=== PATIENT | male | born 1950 | race Caucasian/White ===

== ENCOUNTER → 2016-04-04 | Outpatient (CLI) | payer MEDICARE ==
[~2016-04-04] MED LIST: AMLO10TA2 PO; AMLO5TAB2 PO; CALC.25 PO; CARV3.12 PO; CARV3.125 PO; CEFA1SOL IV; COLA100C3 PO; CYPR4TAB PO; FLUT50SP EACH NARE; FURO1TAB62 PO; HYDR25TA35 PO; IPRASOL NEB; ISOS30TA3 PO; LOVA40TA PO; MIRA33504 PO; NEPHTAB3 PO; NITR1SUB3 SL; NORC5TAB PO; OXYC1TAB63 PO; PANT40TA3 PO; PARO30TA2 PO; RENATAB5 PO; SEVEL800 PO; SPIRCAP INH; TAMS5CAP PO; TEMA15CA PO
[2016-04-04 11:56] LABS: HEMATOCRIT 23.7 % (39.0-51.0); MEAN CELL VOLUME 86.6 FL (80.0-100.0); MEAN CORPUSCULAR HEMOGLOBIN 27.7 PG (27.0-34.0); PLATELET COUNT 618 TH/MM3 (150-450); RED BLOOD COUNT 2.73 MIL/MM3 (4.50-5.90); RED CELL DISTRIBUTION WIDTH 19.5 % (11.6-17.2); REVIEW FLAG FINAL; WHITE BLOOD COUNT 12.5 TH/MM3 (4.0-11.0)
[2016-04-04 12:19] LABS: BICARBONATE 21.6 MEQ/L (21.0-32.0); POTASSIUM 4.4 MEQ/L (3.5-5.1)
--- NOTE | 2016-04-04 13:26 | RADRPT ---
EXAM DATE/TIME: 04/04/2016 11:32 [place] COMPARISON: CHEST SINGLE AP, March 05, 2016, 12:40. INDICATIONS : Evaluate for pnemuonia,pneumothorax. Pre op av fistula. MEDICAL HISTORY : Hypercholesterolemia. Cardiovascular disease SURGICAL HISTORY : dialysis catheter ENCOUNTER: Initial ACUITY: 1 day PAIN SCORE: 0/10 LOCATION: Bilateral chest FINDINGS: The lungs are clear. The heart is normal in size. The dialysis catheter is in good position. The bony structures are intact. CONCLUSION: The PermCath is in excellent position. The lungs are clear. The bony structures are grossly intact. Ronny Craty MD on April 04, 2016 at 13:23 Board Certified Radiologist. This report was verified electronically.
--- NOTE | 2016-04-04 14:40 | EKG ---
Date Performed: 04/04/2016 Time Performed: 11:03:22 PTAGE: 66 years EKG: Sinus rhythm ARM LEADS REVERSED ATYPICAL ECG Since PREVIOUS TRACING , no significant change noted DOCTOR: Ailyn Gamble Interpretating Date/Time 04/04/2016 14:35:50
== END ==
LOC: CPRE 10:30
PROVIDERS: ATTEND Surgery
DX: Z01.810 Encounter for preprocedural cardiovascular examination (principal); Z01.812 Encounter for preprocedural laboratory examination; N18.6 End stage renal disease
CPT/HCPCS: 36415; 71020; 80048; 85027; 93005

== ENCOUNTER 2016-04-10 05:30 | Observation (INO) | payer MEDICARE ==
[2016-04-10] VITALS (11 sets, daily range): BP systolic 90–145; BP diastolic 49–73; PULSE 72–98; RESP 18–22; TEMP 97.8–99.6; O2SAT 98–100
[~2016-04-10] VITALS: Ht 165.1 cm; Wt 60.0 kg
[~2016-04-10 05:30] MED LIST changes: -AMLO10TA2 PO; -CARV3.12 PO; -CARV3.125 PO; -CEFA1SOL IV; -COLA100C3 PO; -FURO1TAB62 PO; -MIRA33504 PO; -NEPHTAB3 PO; -NORC5TAB PO; -OXYC1TAB63 PO; -RENATAB5 PO; -SPIRCAP INH; -TAMS5CAP PO
[2016-04-10] MEDS ORDERED: SODIUM CHLORID 0.9% 500 ML IV SCH (06:15)
[2016-04-10] MEDS ORDERED: METOPROLOL TARTRATE 25 MG TAB PO PRN (06:15)
[2016-04-10] MEDS ORDERED: INSULIN HUMAN REGULAR 1,000 UNITS/10 ML VIAL SQ PRN (06:15)
[2016-04-10] MEDS ORDERED: LACTATED RINGER'S 1000 ML IV SCH (06:15)
[2016-04-10] MEDS ORDERED: THROMBIN (TOPICAL) 5,000 UNIT VIAL ONE (07:15)
[2016-04-10] MEDS ORDERED: FAMOTIDINE 20 MG/2 ML VIAL ONE (07:15)
[2016-04-10] MEDS ORDERED: VANCOMYCIN HCL 1000 MG VIAL ONE (07:15)
[2016-04-10] MEDS ORDERED: MIDAZOLAM HCL 2 MG/2 ML VIAL ONE (07:15)
[2016-04-10] MEDS ORDERED: HEPARIN SODIUM - IV 10,000 UNITS/10 ML VIAL ONE ×2 (07:16→07:18)
[2016-04-10] MEDS ORDERED: BUPIVACAINE/EPINEPHRINE 0.25% PF 30 ML VIAL ONE ×2 (07:16→07:17)
[2016-04-10] MEDS ORDERED: PROTAMINE SULFATE 50 MG/5 ML VIAL ONE (07:16)
[2016-04-10] MEDS ORDERED: GELFOAM SIZE 100 ONE (07:16)
[2016-04-10] MEDS ORDERED: fentaNYL CITRATE 250 MCG/5 ML AMP ONE (10:32)
[2016-04-10] MEDS ORDERED: NITROGLYCERIN 0.4 MG SL 25 TABS/BTL SL ONE ×2 (10:54→11:45)
[2016-04-10] MEDS ORDERED: LORazepam 2 MG/ML VIAL IVP PRN (11:15)
[2016-04-10] MEDS ORDERED: ATROPINE SULFATE 1 MG/ML VIAL IV PUSH PRN (11:15)
[2016-04-10] MEDS ORDERED: POTASSIUM CHLORIDE 20 MEQ CONTROLLED RELEASE TAB PO PRN (11:15)
[2016-04-10] MEDS ORDERED: METOCLOPRAMIDE HCL 10 MG/2 ML VIAL IVS PRN (11:15)
[2016-04-10] MEDS ORDERED: HOLD GLUCOPHAGE, GLUCOPHAGE XR, AND AVANDAMET XX PRN (11:15)
[2016-04-10] MEDS ORDERED: DO NOT ADM ANY ANTICOAGULANT DRUGS XX PRN (11:15)
[2016-04-10] MEDS ORDERED: SODIUM CHLOR 0.9% 250 ML IV PRN (11:15)
[2016-04-10] MEDS ORDERED: cloNIDine HCL 0.1 MG TAB PO PRN (11:15)
[2016-04-10] MEDS ORDERED: METOPROLOL TARTRATE 5 MG/5 ML VIAL ONE (11:15)
[2016-04-10] MEDS ORDERED: oxyCODONE/ACETAMINOPHEN 5 MG/325 MG TAB PO PRN ×2 (11:15)
[2016-04-10] MEDS ORDERED: LIDOCAINE HCL 1% 50 ML VIAL INFIL PRN (11:15)
[2016-04-10] MEDS ORDERED: ONDANSETRON HCL 4 MG/2 ML VIAL IV PRN (11:15)
[2016-04-10] MEDS ORDERED: SODIUM NITROPRUSSIDE 50 MG/250 ML D5W IV SCH ×2 (11:15)
[2016-04-10] MEDS ORDERED: ENALAPRILAT 1.25 MG/ML VIAL IV PRN (11:15)
[2016-04-10] MEDS ORDERED: LABETALOL HCL 100 MG/20 ML VIAL IVP PRN (11:15)
[2016-04-10] MEDS ORDERED: METOPROLOL TARTRATE 5 MG/5 ML VIAL IV PUSH ONE (12:00)
[2016-04-10] MEDS ORDERED: PROPOFOL 200 MG/20 ML AMP IV ONE (12:00)
[2016-04-10] MEDS ORDERED: PHENYLEPH/NS 1000 MCG/10 ML SYR IV ONE (12:00)
[2016-04-10] MEDS ORDERED: SODIUM CHLOR 0.9% 250 ML INJ 250 ML IV ONE (12:00)
[2016-04-10] MEDS ORDERED: ONDANSETRON HCL 4 MG/2 ML VIAL IV PUSH ONE (12:00)
[2016-04-10] MEDS ORDERED: HEPARIN-D5W INJ 250 ML ONE (12:50)
[2016-04-10] MEDS ORDERED: HEPARIN-D5W INJ 250 ML IV ONE (13:15)
--- NOTE | 2016-04-10 14:38 | PD.VS.PN ---
Subjective POD #: 0 (pt had surgery today am ) Procedure(s): right upper arm AV graft Subjective/Hospital Course Pt resting comfortably on st in PACU alert in nad. Pt denied any chest pain, states he had some discomfort that resolved post nitro administration. Objective Vitals/I&O Date Time Temp Pulse Resp B/P Pulse Ox O2 Delivery O2 Flow Rate FiO2 04/10/16 13:15 85 16 138/65 98 Nasal Cannula 04/10/16 13:00 84 16 134/63 98 Nasal Cannula 04/10/16 12:45 84 16 139/67 98 Nasal Cannula 04/10/16 12:30 82 16 133/64 98 Nasal Cannula 04/10/16 12:15 82 16 114/51 98 Nasal Cannula 04/10/16 12:00 82 16 125/57 98 Nasal Cannula 3 04/10/16 11:45 81 16 118/58 98 Nasal Cannula 3 04/10/16 11:30 79 16 115/54 98 Nasal Cannula 3 04/10/16 11:15 97 16 135/62 98 Nasal Cannula 3 04/10/16 11:00 97 16 135/62 98 Nasal Cannula 3 04/10/16 10:45 96 16 146/77 98 Nasal Cannula 3 04/10/16 10:30 91 20 144/70 100 Nasal Cannula 3 04/10/16 10:20 99.0 107 20 138/72 100 Nasal Cannula 3 04/10/16 06:34 98.1 94 20 125/66 99 04/10/16 04/10/16 04/10/16 07:00 15:00 23:00 Intake Total 450 ml Output Total 25 ml Balance 425 ml Exam: GENERAL: pt alert resting comfortably on st SKIN: Warm and dry.. NECK: Supple, trachea midline. No JVD or lymphadenopathy. CARDIOVASCULAR: Regular rate and rhythm without murmurs, gallops, or rubs. RESPIRATORY: Breath sounds equal bilaterally. No accessory muscle use. MUSCULOSKELETAL: No cyanosis, or edema. bilat UE strong with equal weight engineer strength Bilat radial pulses strong and palpable Pulses: bilat radial pulses strong and palpable Incisions: dressing intact with no drainage Laboratory Laboratory Tests Test 04/10/16 11:59 Total Creatine Kinase 15 Troponin I 0.05 Assessment and Plan Assessment: (1) ESRD on hemodialysis Status: Chronic (2) Fistula Status: Acute (3) Chest pain Status: Resolved Plan pt to be admitted for CP Will continue to follow pt for AV graft Problem Qualifiers (1) Chest pain: Qualified Code: R07.89 - Other chest pain Vy Hernandez Apr 10, 2016 14:38
[2016-04-10] MEDS ORDERED: CARVEDILOL 3.125 MG TAB PO ONE (16:00)
[2016-04-10] MEDS ORDERED: NITROGLYCERIN 2% OINT 1 GM PACKET TOPICAL ONE (16:00)
[2016-04-10] MEDS ORDERED: *morphine SULFATE 8 MG/ML PERIprocedure ONLY ONE (17:12)
--- NOTE | 2016-04-10 17:18 | MB ---
cc: BRANDI DEVINE M.D. DATE OF CONSULTATION 04/10/16 REASON FOR CONSULTATION Lizandro is a very pleasant 66 year old gentleman with history of coronary artery disease status post PCI of the obtuse marginal vessel several months ago, cardiomyopathy, end-stage renal failure on dialysis. I saw him in the office last week and recommended a left heart catheterization as he had been having Cardiovascular Society Class IV angina. The patient did not do this and underwent AV fistula and placement today. Postoperatively he developed chest pain, had EKG changes as well. Currently he is resting in the post anesthesia care unit. I had to actually wake him up. He is in no acute distress. Denies any current chest pain, shortness of breath, fevers, chills, cough, GI or bleeding, paroxysmal nocturnal dyspnea, orthopnea, syncope or dizziness. PAST MEDICAL HISTORY per history of present illness. ALLERGIES MULTIDRUG RESISTANT ORGANISM SOCIAL HISTORY He smokes, drinks alcohol occasionally. MEDICATIONS 1. Aspirin 81 mg daily 2. IV Heparin. PHYSICAL EXAMINATION VITAL SIGNS: Blood pressure 138/65, pulse 85, respiratory rate 16. GENERAL: He is alert and oriented times three in no acute distress NECK: Supple. No JVD, no bruit CARDIOVASCULAR: S1, S2. No murmurs, rubs or gallops. LUNGS: Clear to auscultation bilaterally ABDOMEN Soft, nontender, nondistended with positive bowel sounds. EXTREMITIES: No lower extremity edema. LABORATORY DATA Troponin 105. No other labs are done. IMAGING STUDIES Chest x-ray not done. CARDIOLOGY STUDIES EKG shows normal sinus rhythm at 97 beats per minute. Anterior ischemia with 1-[address]-segment depression at V4, V5, ____ PACs. DIAGNOSES 1. Coronary artery disease 2. Cardiomyopathy 3. End-stage renal failure 4. Unstable angina 5. [place] Cardiovascular Society class IV angina 6. Postop angina 7. Tobacco use. DISCUSSION I Discussed the case with Dr. Jared Mcnamara, the patient's vascular surgeon. The patient is being treated with aspirin and heparin drip at low-dose, is currently pain free. He has a known high-grade lesion in the lateral branch of the obtuse marginal vessel which was not able to be revascularized on previous attempt. I suspect this is his culprit lesion given the anterolateral ischemia on the EKG. At this point in time, we will do serial troponins, add beta audrey Coreg 3.125 b.i.d., also check postop CBC, BMP. I advised the anesthesiologist, the post anesthesia care unit nurse and Dr. Mcnamara to place the patient on the hospitalist service and admit the patient. MD BARNEY George/ /3:34 PM /4:56 PM
[2016-04-10 17:19] LABS: MEAN CELL VOLUME 86.3 FL (80.0-100.0); MEAN CORPUSCULAR HEMOGLOBIN 27.1 PG (27.0-34.0); MEAN CORPUSCULAR HGB CONC 31.4 % (32.0-36.0); PLATELET COUNT 548 TH/MM3 (150-450); RED BLOOD COUNT 2.36 MIL/MM3 (4.50-5.90); RED CELL DISTRIBUTION WIDTH 19.7 % (11.6-17.2); WHITE BLOOD COUNT 12.3 TH/MM3 (4.0-11.0)
[2016-04-10 17:30] LABS: HEMATOCRIT 20.4 % (39.0-51.0); REVIEW FLAG FINAL
[2016-04-10 17:32] LABS: APTT (PATIENT) 30.6 SEC (24.3-30.1); PROTHROMBIN TIME - PATIENT 11.6 SEC (9.8-11.6)
--- NOTE | 2016-04-10 17:43 | HHI.HP ---
[facility] Yulia Beaulieu DO Admission Diagnosis Diagnoses: Chief Complaint: Chest pain Travel History International Travel<30 Days: No Contact w/Intl Traveler <30 Da: No Traveled to Known Affected Are: No History of Present Illness This 66 year old male patient with past medical history which includes a end- stage renal disease secondary to IgA nephropathy, hypertension, COPD, atrial fibrillation, CAD status post coronary angioplasty, hyperlipidemia, esophageal ulceration and history of MRSA. Patient underwent a right brachial to brachial AV fistula today and in the post anesthesia recovery unit had to have chest pain. Per patient the chest pain was located primarily initiated on the right side of his chest with radiation down his left arm and into his back. Chest pain is associated with shortness of breath. Patient also noted to have EKG changes. EKG reviewed by myself as well as Dr. Lai and revealed normal sinus rhythm at 97 beats per minute. Anterior ischemia with 1-[address]- segment depression at V4, V5. Patient was given sublingual nitroglycerin and the chest pain resolved after proximally 15 minutes. Patient is currently on a heparin drip per cardiology. Patient resting currently at this point denies chest pain and appears to be in no acute distress. In further questioning appears the patient has had this type of chest pain both at rest and with activity for the past few weeks at home and it was in fact advised by his terrazzo installer Dr. Ramos to have a left heart catheterization. Patient did not do this and proceeded with the AV fistula graft. 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, hypertension, COPD, atrial fibrillation, CAD status post coronary angioplasty, hyperlipidemia, esophageal ulceration and history of MRSA Past Surgical History Coronary angioplasty patient reports he has no stents, left foot surgery 1978, dialysis catheter placed right side, Bilateral cataract surgery Reported Medications Hydralazine (Hydralazine HCl) 25 Mg Tab 25 Mg PO Q8HR 30 Days Pantoprazole (Pantoprazole Sodium) 40 Mg Tab 40 Mg PO DAILY Duoneb (Ipratropium-Albuterol Neb) 0.5-2.5 Mg/3 Ml Neb 1 Ampule NEB QID NEB Nitroglycerin SL (Nitroglycerin) 0.4 Mg Subl 0.4 Mg SL DIRECTED PRN ONE TABLET UNDER THE TONGUE NEEDED FOR CHEST PAIN, MAY REPEAT EVERY FIVE MINUTES FOR A TOTAL OF 3 DOSES OR CALL 911 IF NO RELIEF Isosorbide Mononitrate ER (Isosorbide Mononitrate) 30 Mg Neris 30 Mg PO DAILY Amlodipine (Amlodipine Besylate) 5 Mg Tab 5 Mg PO DAILY Paroxetine (Paroxetine HCl) 30 Mg Tab 30 Mg PO DAILY Fluticasone Nasal [place] 50 Mcg/Act Naspr 50 Mcg EACH NARE BID 50 mcg/spray Lovastatin 40 Mg Tab 40 Mg PO HS Renvela (Sevelamer Carbonate) 800 Mg Tab 800 Mg PO TID Allergies: Coded Allergies: *MDRO Multi-Drug Resistant Organism (Verified Adverse Reaction, Unknown, ) MRSA (blood) -01/17/16, 01/21/16 Active Ordered Medications Current Medications Medications (Trade) Dose Ordered Sig/Tamara Route Start Time Stop Time Status Last Admin Lactated Ringer's 1,000 ml @ 30 mls/hr Q24H IV 04/10/16 06:15 04/10/16 06:25 (NS 500 ml Inj) 500 ml @ 30 mls/hr [id number] IV 04/10/16 06:15 04/11/16 06:14 Atropine Sulfate 0.5 mg 0.5 mg UNSCH PRN IV PUSH 04/10/16 11:15 (NS 250 ml Inj) 250 ml @ 0 mls/hr BOLUS PRN IV 04/10/16 11:15 (Reglan Inj) 10 mg Q4H PRN IVS 04/10/16 11:15 (Zofran Inj) 4 mg Q6H PRN IV 04/10/16 11:15 Aspirin 81 mg 81 mg DAILY PO 04/11/16 09:00 (Nipride Inj/D5W Inj) 252 ml @ 0 mls/hr TITRATE IV 04/10/16 11:15 (Catapres) 0.1 mg Q30M PRN PO 04/10/16 11:15 Miscellaneous Information HOLD GLUCOPHAGE, GLUCOPH... UNSCH PRN XX 04/10/16 11:15 04/12/16 11:14 (Percocet 5-325 Mg) 1 tab Q4H PRN PO 04/10/16 11:15 (Percocet 5-325 Mg) 2 tab Q4H PRN PO 04/10/16 11:15 Miscellaneous Information ALL NURSING DEPARTME... UNSCH PRN XX 04/10/16 11:15 04/11/16 11:14 (Heparin-D5W Inj) 250 ml @ 5 mls/hr ONCE ONCE IV 04/10/16 13:15 04/12/16 15:14 04/10/16 13:34 (Coreg) 3.125 mg Q12HR PO 04/10/16 21:00 (Nitroglycerin 2% Oint) 1 inch Q6HR TOPICAL 04/11/16 00:00 Family History Mother denies colon cancer, father at age 93 secondary to "old age" Social History Patient smoked one spelled once proximal thirds per day from age 19 and quit July 2015 EtOH use 1 to 2 glasses of wine per night Physical Exam Vital Signs Vital Signs Date Time Temp Pulse Resp B/P Pulse Ox O2 Delivery O2 Flow Rate FiO2 04/10/16 13:30 87 16 143/68 98 Nasal Cannula 2 04/10/16 13:15 85 16 138/65 98 Nasal Cannula 04/10/16 13:00 84 16 134/63 98 Nasal Cannula 04/10/16 12:45 84 16 139/67 98 Nasal Cannula 04/10/16 12:30 82 16 133/64 98 Nasal Cannula 04/10/16 12:15 82 16 114/51 98 Nasal Cannula 04/10/16 12:00 82 16 125/57 98 Nasal Cannula 3 04/10/16 11:45 81 16 118/58 98 Nasal Cannula 3 04/10/16 11:30 79 16 115/54 98 Nasal Cannula 3 04/10/16 11:15 97 16 135/62 98 Nasal Cannula 3 04/10/16 11:00 97 16 135/62 98 Nasal Cannula 3 04/10/16 10:45 96 16 146/77 98 Nasal Cannula 3 04/10/16 10:30 91 20 144/70 100 Nasal Cannula 3 04/10/16 10:20 99.0 107 20 138/72 100 Nasal Cannula 3 04/10/16 06:34 98.1 94 20 125/66 99 Physical Exam GENERAL: This is a well-nourished, well-developed patient, in no apparent distress. SKIN: No rashes, ecchymoses or lesions. Cool and dry. Right upper extremity post surgical dressing dry and intact HEAD: Atraumatic. Normocephalic. No temporal or scalp tenderness. EYES: Extraocular motions intact. No scleral icterus. No injection or drainage. ENT: Nose without bleeding, purulent drainage or septal hematoma. Throat without erythema, tonsillar hypertrophy or exudate. Uvula midline. Airway patent. NECK: Trachea midline. No JVD or lymphadenopathy. Supple, nontender, no meningeal signs. CARDIOVASCULAR: Regular rate and rhythm without murmurs, gallops, or rubs. RESPIRATORY: Clear to auscultation. Breath sounds equal bilaterally. No wheezes , rales, or rhonchi. GASTROINTESTINAL: Abdomen soft, non-tender, nondistended. No guarding. MUSCULOSKELETAL: Extremities without clubbing, cyanosis, or edema. No joint tenderness, effusion, or edema noted. No calf tenderness. Negative Homans sign bilaterally. NEUROLOGICAL: Awake and alert. Motor and sensory grossly within normal limits. 4 out of 5 muscle strength in all muscle groups. Normal speech. 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 Patient underwent a right brachial to brachial AV fistula today and in the post anesthesia recovery unit had to have chest pain. EKG reviewed by myself as well as Dr. Lai and revealed normal sinus rhythm at 97 beats per minute. Anterior ischemia with 1-[address]- segment depression at V4, V5. Chest pain Continue heparin drip per cardiology Carvedilol 3.125 every 12 hours nitroglycerin 1 inch topically every 6 hours- patient takes Imdur 30 mg at home will hold off at this point in defer to cardiology as cardiology has started nitroglycerin 2% ointment 1 inch every 6 hours Serial troponin Lipid profile Cardiology also following, appreciate input End-stage renal disease secondary to IgA nephropathy-status post right brachial to brachial AV fistula graft on 04/10/2016 Hypertension continue patient's Norvasc and hydralazine Hyperlipidemia continue patient's home statin check lipid profile COPD continue duo nebs 4 times a day and as needed SCDs for DVT prophylaxis patient is also on heparin drip Discussed plan of care with patient and RN Written by Melina Manuel, acting as scribe for Dr. Lai on 04/10/16 at 17:42. Postop anemia Received call from RN with critical hemoglobin of 6.4 hematocrit 20.4. Preop labs reveal hemoglobin of 7.6 and hematocrit of 23.7 We'll transfuse 2 units packed red blood cells and recheck H&H every 6 hours 4 Also will check occult stool Dr. Lai notified Attending Statement The documentation accurately reflects the work performed [id number] by me on at 17:42. Melina Manuel Apr 10, 2016 17:43 Casey Sun MD Apr 27, 2016 11:08
[2016-04-10] MEDS ORDERED: SODIUM CHLORIDE 0.9% FLUSH 5 ML FLUSH FLUSH PRN (17:45)
[2016-04-10] MEDS ORDERED: NALOXONE HCL 0.4 MG/ML AMP IV PRN (17:45)
[2016-04-10] MEDS ORDERED: ACETAMINOPHEN 325 MG TAB PO PRN (17:45)
[2016-04-10] MEDS ORDERED: ONDANSETRON HCL 4 MG/2 ML VIAL IVP PRN (17:45)
[2016-04-10] MEDS: SEVELAMER CARBONATE 800 MG TAB PO SCH (18:00)
[2016-04-10 18:43] LABS: HEMATOCRIT 18.4 % (39.0-51.0)
[2016-04-10] MEDS: SODIUM CHLOR 0.9% 1000 ML INJ 1,000 ML IV SCH (19:00)
[2016-04-10] MEDS ORDERED: PILL SPLITTER OTHER PRN (19:00)
[2016-04-10] MEDS ORDERED: HEPARIN-D5W INJ 250 ML IV SCH (19:09)
--- NOTE | 2016-04-10 19:34 | EKG ---
Date Performed: 04/10/2016 Time Performed: 11:07:47 PTAGE: 66 years EKG: Sinus rhythm WITH OCCASIONAL SUPRAVENTRICULAR PREMATURE COMPLEXES LEFT VENTRICULAR HYPERTROPHY AND ST-T CHANGE Co mpared to prior tracing no significant change ABNORMAL ECG PREVIOUS TRACING : 04/04/2016 11.03 DOCTOR: Rhys Allan Interpretating Date/Time 04/10/2016 19:33:06
[2016-04-10] MEDS: hydrALAZINE HCL 25 MG TAB PO SCH (20:31)
[2016-04-10] MEDS: CARVEDILOL 3.125 MG TAB PO SCH (20:31)
[2016-04-10] MEDS: SODIUM CHLORIDE 0.9% FLUSH 5 ML FLUSH FLUSH SCH (20:32)
[2016-04-10] MEDS ORDERED: PRAVASTATIN SOD 40 MG TAB PO SCH (21:00)
[2016-04-10] MEDS: RESP: ALBUTEROL 2.5 MG/IPRATROPIUM 0.5 MG NEB (SCH) NEB (21:18)
[2016-04-11] VITALS (17 sets, daily range): BP systolic 95–137; BP diastolic 49–64; PULSE 73–91; RESP 18–20; TEMP 97.8–99.4; O2SAT 97–100
[2016-04-11 05:18] LABS: HEMATOCRIT 31.1 % (39.0-51.0); MEAN CELL VOLUME 84.7 FL (80.0-100.0); MEAN CORPUSCULAR HEMOGLOBIN 27.7 PG (27.0-34.0); MEAN CORPUSCULAR HGB CONC 32.8 % (32.0-36.0); PLATELET COUNT 519 TH/MM3 (150-450); RED BLOOD COUNT 3.67 MIL/MM3 (4.50-5.90); RED CELL DISTRIBUTION WIDTH 17.9 % (11.6-17.2); REVIEW FLAG FINAL; WHITE BLOOD COUNT 9.6 TH/MM3 (4.0-11.0)
[2016-04-11 05:34] LABS: APTT (PATIENT) 24.8 SEC (24.3-30.1)
[2016-04-11 05:49] LABS: BICARBONATE 22.8 MEQ/L (21.0-32.0); POTASSIUM 4.2 MEQ/L (3.5-5.1)
[2016-04-11] MEDS: hydrALAZINE HCL 25 MG TAB PO SCH ×2 (05:49→14:00)
[2016-04-11] MEDS: NITROGLYCERIN 2% OINT 1 GM PACKET TOPICAL SCH ×4 (05:49→18:00)
[2016-04-11 05:53] LABS: HDL CHOLESTEROL 30.3 MG/DL (40.0-60.0)
[2016-04-11] MEDS ORDERED: HEPARIN-D5W INJ 250 ML IV SCH (06:00)
[2016-04-11] MEDS: RESP: ALBUTEROL 2.5 MG/IPRATROPIUM 0.5 MG NEB (SCH) NEB ×3 (07:41→16:00)
[2016-04-11] MEDS: SEVELAMER CARBONATE 800 MG TAB PO SCH ×3 (08:39→18:11)
[2016-04-11] MEDS: CARVEDILOL 3.125 MG TAB PO SCH (08:40)
[2016-04-11] MEDS: SODIUM CHLORIDE 0.9% FLUSH 5 ML FLUSH FLUSH SCH (08:42)
[2016-04-11] MEDS ORDERED: PARoxetine HCL 20 MG TAB PO SCH (09:00)
[2016-04-11] MEDS ORDERED: PANTOPRAZOLE SOD 40 MG DELAYED RELEASE TAB PO SCH (09:00)
[2016-04-11] MEDS ORDERED: ASPIRIN EC 81 MG TABEC PO SCH (09:00)
[2016-04-11] MEDS ORDERED: amLODIPine BESYLATE 5 MG TAB PO SCH (09:00)
--- NOTE | 2016-04-11 09:56 | PD.VS.PN ---
Subjective Subjective/Hospital Course Patient without chest pain overnight. without arm pain. Objective Vitals/I&O Date Time Temp Pulse Resp B/P Pulse Ox O2 Delivery O2 Flow Rate FiO2 04/11/16 07:43 98 Nasal Cannula 3.00 04/11/16 06:00 83 04/11/16 05:00 80 04/11/16 04:00 84 04/11/16 04:00 97.8 91 18 136/63 99 04/11/16 03:00 82 04/11/16 02:00 84 04/11/16 01:00 82 04/11/16 00:00 77 04/11/16 00:00 97.8 80 18 95/49 100 04/10/16 23:45 97.8 76 18 96/49 100 04/10/16 23:00 76 04/10/16 22:00 72 04/10/16 21:19 98 Nasal Cannula 3.00 04/10/16 21:00 80 04/10/16 20:00 89 04/10/16 20:00 99.6 89 18 90/52 100 04/10/16 19:45 99.3 79 18 139/60 100 04/10/16 19:30 99.3 89 18 90/52 100 04/10/16 19:00 92 04/10/16 18:29 98.8 98 22 145/73 98 04/10/16 18:06 99.2 98 18 149/62 96 Nasal Cannula 2 04/10/16 17:30 98 18 149/62 96 Nasal Cannula 2 04/10/16 16:30 99 18 140/60 96 Nasal Cannula 2 04/10/16 15:30 92 16 155/75 97 Nasal Cannula 2 04/10/16 14:30 100 16 149/72 98 Nasal Cannula 2 04/10/16 13:30 87 16 143/68 98 Nasal Cannula 2 04/10/16 13:15 85 16 138/65 98 Nasal Cannula 04/10/16 13:00 84 16 134/63 98 Nasal Cannula 04/10/16 12:45 84 16 139/67 98 Nasal Cannula 04/10/16 12:30 82 16 133/64 98 Nasal Cannula 04/10/16 12:15 82 16 114/51 98 Nasal Cannula 04/10/16 12:00 82 16 125/57 98 Nasal Cannula 3 04/10/16 11:45 81 16 118/58 98 Nasal Cannula 3 04/10/16 11:30 79 16 115/54 98 Nasal Cannula 3 04/10/16 11:15 97 16 135/62 98 Nasal Cannula 3 04/10/16 11:00 97 16 135/62 98 Nasal Cannula 3 04/10/16 10:45 96 16 146/77 98 Nasal Cannula 3 04/10/16 10:30 91 20 144/70 100 Nasal Cannula 3 04/10/16 10:20 99.0 107 20 138/72 100 Nasal Cannula 3 04/11/16 04/11/16 04/11/16 07:00 15:00 23:00 Intake Total 1280 ml Output Total 500 ml Balance 780 ml Physical Exam right arm with palpable thrill and no swelling ecchymosis or bleeding. Laboratory Laboratory Tests Test 04/10/16 04/10/16 04/10/16 04/10/16 11:59 17:07 18:14 18:19 Total Creatine Kinase 15 Troponin I 0.05 0.06 White Blood Count 12.3 Red Blood Count 2.36 Hemoglobin 6.4 5.8 Hematocrit 20.4 18.4 Mean Corpuscular Volume 86.3 Mean Corpuscular Hemoglobin 27.1 Mean Corpuscular Hemoglobin 31.4 Concent Red Cell Distribution Width 19.7 Platelet Count 548 Mean Platelet Volume 7.3 Prothrombin Time 11.6 Prothromb Time International 1.0 Ratio Activated Partial 30.6 Thromboplast Time Blood Type A NEGATIVE Antibody Screen NEGATIVE Crossmatch Leukocyte-Reduced Red Blood Cells Blood Bank Comment Test 04/11/16 04:47 White Blood Count 9.6 Red Blood Count 3.67 Hemoglobin 10.2 Hematocrit 31.1 Mean Corpuscular Volume 84.7 Mean Corpuscular Hemoglobin 27.7 Mean Corpuscular Hemoglobin 32.8 Concent Red Cell Distribution Width 17.9 Platelet Count 519 Mean Platelet Volume 7.0 Activated Partial 24.8 Thromboplast Time Sodium Level 134 Potassium Level 4.2 Chloride Level 100 Carbon Dioxide Level 22.8 Anion Gap 11 Blood Urea Nitrogen 34 Creatinine 3.62 Estimat Glomerular Filtration 17 Rate Random Glucose 85 Calcium Level 10.4 Troponin I 0.07 Triglycerides Level 97 Cholesterol Level 82 LDL Cholesterol 32 HDL Cholesterol 30.3 Cholesterol/HDL Ratio 2.70 Assessment and Plan Assessment: (1) ESRD on hemodialysis Status: Chronic (2) Fistula Status: Acute (3) Chest pain Status: Resolved Plan This is a 66 yr old male with hx of ESRD status post right brachiobrachial AVF. Had chest pain post op, known patient of Dr. Ramos, with hx of [place] and coronary stent in fall of 2015. Pain has resolved and discussed follow up with Dr. Ramos, would like to see patient before discharge. Cannot see patient until later today. Will consult nephrology so he can undergo HD as he will miss his afternoon session. Patient is not bleeding and had minimal blood loss in OR, less than 50 cc's. Hemoglobin rise to 10.2 from 5.8 or 6.4 most likely mean two original blood values were diluted or erroneous. No need for follow up for hemoglobin or bleeding as this is not a source of his low H/H.. Advance diet and discharge after see by Dr. Richard Mcnamara DO, FACS [facility] Problem Qualifiers (1) Chest pain: Qualified Code: R07.89 - Other chest pain Jared Mcnamara DO Apr 11, 2016 09:56
--- NOTE | 2016-04-11 10:07 | PD.VS.DC ---
Discharge Summary Admission Date: Apr 10, 2016 at 17:45 Discharge Date: Apr 11, 2016 Admission Diagnosis: (1) Angina at rest (2) ESRD (end stage renal disease) on dialysis (3) Anemia Discharge Diagnosis: (1) ESRD on hemodialysis Diagnosis: Principal Status: Chronic (2) Fistula Diagnosis: Secondary Status: Acute (3) Chest pain Diagnosis: Secondary Status: Resolved (4) Angina at rest Diagnosis: Secondary Status: Acute (5) Anemia Diagnosis: Secondary Status: Acute (6) ESRD (end stage renal disease) on dialysis Diagnosis: Principal Status: Chronic Brief History from admission 66 year old with hx of anemia and hx of CAD with previous coronary stent with known risk for haseeb-opeartive cardiac event discussed with patient and Dr. Ramos pre-operatively. Underwent right upper extremity AVF. Chest pain in PACU. Patient has had chest pain at rest before this admission when seen in the office. Admitted for observation after chest pain in PACU. Patient had resolution of his chest pain with nitroglycerin and has not had any chest pain since this event. Dr. Ramos will reassess him later today. Plan for discharge after seen by Dr. Ramos. Procedure(s): right upper arm AV graft Significant Findings Laboratory Tests Test 04/10/16 04/10/16 04/10/16 04/11/16 11:59 17:07 18:19 04:47 Total Creatine Kinase 15 U/L (39-308) White Blood Count 12.3 TH/MM3 (4.0-11.0) Red Blood Count 2.36 MIL/MM3 3.67 MIL/MM3 (4.50-5.90) (4.50-5.90) Hemoglobin 6.4 GM/DL 5.8 GM/DL 10.2 GM/DL (13.0-17.0) (13.0-17.0) (13.0-17.0) Hematocrit 20.4 % 18.4 % 31.1 % (39.0-51.0) (39.0-51.0) (39.0-51.0) Mean Corpuscular Hemoglobin 31.4 % Concent (32.0-36.0) Red Cell Distribution Width 19.7 % 17.9 % (11.6-17.2) (11.6-17.2) Platelet Count 548 TH/MM3 519 TH/MM3 (150-450) (150-450) Activated Partial 30.6 SEC Thromboplast Time (24.3-30.1) Troponin I 0.06 NG/ML 0.07 NG/ML (0.02-0.05) (0.02-0.05) Sodium Level 134 MEQ/L (136-145) Blood Urea Nitrogen 34 MG/DL (7-18) Creatinine 3.62 MG/DL (0.60-1.30) Estimat Glomerular Filtration 17 ML/MIN (>89) Rate Calcium Level 10.4 MG/DL (8.5-10.1) Cholesterol Level 82 MG/DL (120-200) HDL Cholesterol 30.3 MG/DL (40.0-60.0) Hospital Course: uncomplicated with resolution of chest pain and a functioning fistula. Discharge Condition: Good Discharge Disposition: Discharge Home Discharge Instructions: Follow up with Dr. Ramos on Follow up with Dr. Mcnamara on Sunday 04/16 Any questions or concerns: Call [facility] at [facility] [phone] Jared Mcnamara DO Apr 11, 2016 10:07
[2016-04-11] MEDS ORDERED: SODIUM CHLOR 0.9% 1000 ML INJ 1,000 ML IV PRN ×3 (11:24)
[2016-04-11] MEDS ORDERED: diphenhydrAMINE HCL 25 MG CAP PO PRN (11:30)
[2016-04-11] MEDS ORDERED: GENTAMICIN SULFATE (DIALYSIS USE ONLY) 20 MG/2 ML VIAL IV PRN (11:30)
[2016-04-11] MEDS ORDERED: ALBUMIN HUMAN 25% 25 GM/100 ML BAGP IV PRN (11:30)
[2016-04-11] MEDS ORDERED: ONDANSETRON HCL 4 MG/2 ML VIAL IV PRN (11:30)
[2016-04-11] MEDS ORDERED: SODIUM CHLORIDE 0.9% FLUSH 5 ML FLUSH IVF PRN (11:30)
[2016-04-11] MEDS ORDERED: HEPARIN SODIUM - IV 10,000 UNITS/10 ML VIAL PRN (11:30)
[2016-04-11] MEDS ORDERED: ACETAMINOPHEN 325 MG TAB PO PRN (11:30)
[2016-04-11] MEDS ORDERED: cloNIDine HCL 0.1 MG TAB PO PRN (11:30)
[2016-04-11] MEDS ORDERED: MANNITOL 12.5 GM/50 ML VIAL IV PRN (11:30)
[2016-04-11] MEDS ORDERED: GELATIN 12 MM/7 MM FOAM TOP PRN (11:30)
[2016-04-11] MEDS ORDERED: NITROGLYCERIN 0.4 MG SL 25 TABS/BTL SL PRN (11:30)
[2016-04-11] MEDS ORDERED: HEPARIN SODIUM - IV 10,000 UNITS/10 ML VIAL IVF PRN (11:30)
[2016-04-11] MEDS ORDERED: EPOETIN ALFA 4,000 UNITS/ML VIAL IV PRN (11:30)
--- NOTE | 2016-04-11 11:50 | PD.CONS ---
HPI Service Nephrology Consult Requested By Dr. Gentile Reason for Consult ESRD Primary Care Physician Yulia Beaulieu, DO History of Present Illness Patient is a 66-year-old male with history of end-stage renal disease, IgA nephropathy, hypertension, admitted for AV fistula placement in right arm has same-day surgery , patient has low hemoglobin and was transfused 2 units of blood. Current hemoglobin is 10.2, he is due for hemodialysis Review of Systems Constitutional: COMPLAINS OF: Fatigue Musculoskeletal: COMPLAINS OF: Joint pain, Back pain Neurologic: COMPLAINS OF: Localized weakness Past Family Social History Allergies: Coded Allergies: *MDRO Multi-Drug Resistant Organism (Verified Adverse Reaction, Unknown, ) MRSA (blood) -01/17/16, 01/21/16 Past Medical History Anemia ESRD History of MRSA Atrial fibrillation Hypertension IgA nephropathy Bilateral leg weakness Osteoarthritis Past Surgical History His permacath Kidney biopsy Cataract AV fistula on 04/10/16 right side Reported Medications Reported Meds & Active Scripts Active Hydralazine (Hydralazine HCl) 25 Mg Tab 25 Mg PO Q8HR 30 Days Pantoprazole (Pantoprazole Sodium) 40 Mg Tab 40 Mg PO DAILY Duoneb (Ipratropium-Albuterol Neb) 0.5-2.5 Mg/3 Ml Neb 1 Ampule NEB QID NEB Reported Nitroglycerin SL (Nitroglycerin) 0.4 Mg Subl 0.4 Mg SL DIRECTED PRN ONE TABLET UNDER THE TONGUE NEEDED FOR CHEST PAIN, MAY REPEAT EVERY FIVE MINUTES FOR A TOTAL OF 3 DOSES OR CALL 911 IF NO RELIEF Isosorbide Mononitrate ER (Isosorbide Mononitrate) 30 Mg Neris 30 Mg PO DAILY Amlodipine (Amlodipine Besylate) 5 Mg Tab 5 Mg PO DAILY Paroxetine (Paroxetine HCl) 30 Mg Tab 30 Mg PO DAILY Fluticasone Nasal [place] 50 Mcg/Act Naspr 50 Mcg EACH NARE BID 50 mcg/spray Lovastatin 40 Mg Tab 40 Mg PO HS Renvela (Sevelamer Carbonate) 800 Mg Tab 800 Mg PO TID Active Ordered Medications Current Medications Medications (Trade) Dose Ordered Sig/Tamara Route Start Time Stop Time Status Last Admin Atropine Sulfate 0.5 mg 0.5 mg UNSCH PRN IV PUSH 04/10/16 11:15 (NS 250 ml Inj) 250 ml @ 0 mls/hr BOLUS PRN IV 04/10/16 11:15 (Reglan Inj) 10 mg Q4H PRN IVS 04/10/16 11:15 Aspirin 81 mg 81 mg DAILY PO 04/11/16 09:00 04/11/16 08:41 (Nipride Inj/D5W Inj) 252 ml @ 0 mls/hr TITRATE IV 04/10/16 11:15 (Catapres) 0.1 mg Q30M PRN PO 04/10/16 11:15 Miscellaneous Information HOLD GLUCOPHAGE, GLUCOPH... UNSCH PRN XX 04/10/16 11:15 04/12/16 11:14 (Percocet 5-325 Mg) 1 tab Q4H PRN PO 04/10/16 11:15 04/11/16 08:41 (Percocet 5-325 Mg) 2 tab Q4H PRN PO 04/10/16 11:15 04/10/16 20:31 (Coreg) 3.125 mg Q12HR PO 04/10/16 21:00 04/11/16 08:40 (Nitroglycerin 2% Oint) 1 inch Q6HR TOPICAL 04/11/16 00:00 04/11/16 05:49 (Norvasc) 5 mg DAILY PO 04/11/16 09:00 04/11/16 08:41 (Apresoline) 25 mg Q8HR PO 04/10/16 22:00 04/11/16 05:49 (Pravachol) 40 mg HS PO 04/10/16 21:00 04/10/16 20:31 (Protonix) 40 mg DAILY PO 04/11/16 09:00 04/11/16 08:40 (Paxil) 30 mg DAILY PO 04/11/16 09:00 04/11/16 08:40 (Renvela) 800 mg TIDAC PO 04/10/16 18:00 04/11/16 08:39 (NS Flush) 2 ml UNSCH PRN FLUSH 04/10/16 17:45 (NS Flush) 2 ml BID FLUSH 04/10/16 21:00 04/11/16 08:42 (Tylenol) 650 mg Q4H PRN PO 04/10/16 17:45 (Zofran Inj) 4 mg Q6H PRN IVP 04/10/16 17:45 Naloxone HCl 0.4 mg 0.4 mg UNSCH PRN IV 04/10/16 17:45 (NS 1000 ml Inj) 1,000 ml @ 42 mls/hr [id number] IV 04/10/16 17:45 04/10/16 19:00 Miscellaneous 1 ea 1 ea UNSCH PRN OTHER 04/10/16 19:00 (NS 1000 ml Inj) 1,000 ml @ 0 mls/hr Q0M PRN IV 04/11/16 11:24 Heparin Sodium (Porcine) 8000 units 8,000 units UNSCH PRN IVF 04/11/16 11:30 Sodium Chloride 1,000 ml @ 200 mls/hr Q5H PRN IV 04/11/16 11:24 (NS 1000 ml Inj) 1,000 ml @ 0 mls/hr Q0M PRN IV 04/11/16 11:24 (Mannitol Inj) 12.5 gm UNSCH PRN IV 04/11/16 11:30 (Albumin 25% Inj) 25 gm UNSCH PRN IV 04/11/16 11:30 (NS Flush) 5 ml UNSCH PRN IVF 04/11/16 11:30 (Heparin Inj) UNSCH PRN .XX 04/11/16 11:30 (Gentamicin (Dialysis) Inj) 20 mg UNSCH PRN IV 04/11/16 11:30 (Zofran Inj) 4 mg UNSCH PRN IV 04/11/16 11:30 (Tylenol) 650 mg UNSCH PRN PO 04/11/16 11:30 (Benadryl) 25 mg UNSCH PRN PO 04/11/16 11:30 (Nitrostat Sl) 0.4 mg UNSCH PRN SL 04/11/16 11:30 (Catapres) 0.1 mg UNSCH PRN PO 04/11/16 11:30 (Epogen Inj) 4,000 units UNSCH PRN IV 04/11/16 11:30 (Gelfoam 12 Mm/7 Mm Top) 1 foam UNSCH PRN TOP 04/11/16 11:30 Family History Noncontributory Social History History of smoking or alcohol use Physical Exam Vital Signs Vital Signs Date Time Temp Pulse Resp B/P Pulse Ox O2 Delivery O2 Flow Rate FiO2 04/11/16 09:41 18 04/11/16 08:00 99.4 91 18 137/64 04/11/16 07:43 98 Nasal Cannula 3.00 04/11/16 06:00 83 04/11/16 05:00 80 04/11/16 04:00 84 04/11/16 04:00 97.8 91 18 136/63 99 04/11/16 03:00 82 04/11/16 02:00 84 04/11/16 01:00 82 04/11/16 00:00 77 04/11/16 00:00 97.8 80 18 95/49 100 04/10/16 23:45 97.8 76 18 96/49 100 04/10/16 23:00 76 04/10/16 22:00 72 04/10/16 21:19 98 Nasal Cannula 3.00 04/10/16 21:00 80 04/10/16 20:00 89 04/10/16 20:00 99.6 89 18 90/52 100 04/10/16 19:45 99.3 79 18 139/60 100 04/10/16 19:30 99.3 89 18 90/52 100 04/10/16 19:00 92 04/10/16 18:29 98.8 98 22 145/73 98 04/10/16 18:06 99.2 98 18 149/62 96 Nasal Cannula 2 04/10/16 17:30 98 18 149/62 96 Nasal Cannula 2 04/10/16 16:30 99 18 140/60 96 Nasal Cannula 2 04/10/16 15:30 92 16 155/75 97 Nasal Cannula 2 04/10/16 14:30 100 16 149/72 98 Nasal Cannula 2 04/10/16 13:30 87 16 143/68 98 Nasal Cannula 2 04/10/16 13:15 85 16 138/65 98 Nasal Cannula 04/10/16 13:00 84 16 134/63 98 Nasal Cannula 04/10/16 12:45 84 16 139/67 98 Nasal Cannula 04/10/16 12:30 82 16 133/64 98 Nasal Cannula 04/10/16 12:15 82 16 114/51 98 Nasal Cannula 04/10/16 12:00 82 16 125/57 98 Nasal Cannula 3 04/10/16 11:45 81 16 118/58 98 Nasal Cannula 3 Physical Exam GENERAL: Well-nourished, well-developed patient. SKIN: Warm and dry. HEAD: Normocephalic. EYES: No scleral icterus. No injection or drainage. NECK: Supple, trachea midline. No JVD or lymphadenopathy. CARDIOVASCULAR: Regular rate and rhythm without murmurs, gallops, or rubs. RESPIRATORY: Breath sounds equal bilaterally. No accessory muscle use. GASTROINTESTINAL: Abdomen soft, non-tender, nondistended. EXTREMITIES: No cyanosis, or edema. AV fistula right arm positive thrill NEUROLOGICAL: Awake, alert, and oriented x 3. Non-focal. Laboratory Laboratory Tests Test 04/10/16 04/10/16 04/10/16 04/10/16 11:59 17:07 18:14 18:19 Total Creatine Kinase 15 Troponin I 0.05 0.06 White Blood Count 12.3 Red Blood Count 2.36 Hemoglobin 6.4 5.8 Hematocrit 20.4 18.4 Mean Corpuscular Volume 86.3 Mean Corpuscular Hemoglobin 27.1 Mean Corpuscular Hemoglobin 31.4 Concent Red Cell Distribution Width 19.7 Platelet Count 548 Mean Platelet Volume 7.3 Prothrombin Time 11.6 Prothromb Time International 1.0 Ratio Activated Partial 30.6 Thromboplast Time Blood Type A NEGATIVE Antibody Screen NEGATIVE Crossmatch Leukocyte-Reduced Red Blood Cells Blood Bank Comment Test 04/11/16 04:47 White Blood Count 9.6 Red Blood Count 3.67 Hemoglobin 10.2 Hematocrit 31.1 Mean Corpuscular Volume 84.7 Mean Corpuscular Hemoglobin 27.7 Mean Corpuscular Hemoglobin 32.8 Concent Red Cell Distribution Width 17.9 Platelet Count 519 Mean Platelet Volume 7.0 Activated Partial 24.8 Thromboplast Time Sodium Level 134 Potassium Level 4.2 Chloride Level 100 Carbon Dioxide Level 22.8 Anion Gap 11 Blood Urea Nitrogen 34 Creatinine 3.62 Estimat Glomerular Filtration 17 Rate Random Glucose 85 Calcium Level 10.4 Troponin I 0.07 Triglycerides Level 97 Cholesterol Level 82 LDL Cholesterol 32 HDL Cholesterol 30.3 Cholesterol/HDL Ratio 2.70 Result Diagram: 04/11/1644604/11/16446 Assessment and Plan Problem List: (1) ESRD on hemodialysis Plan: Patient will be scheduled for hemodialysis this afternoon continue supportive care monitor hemoglobin (2) Fistula Plan: Right arm (3) Anemia Plan: Receive packed red blood Napoleon Soriano MD Apr 11, 2016 11:50
--- NOTE | 2016-04-11 13:36 | HHI.PR ---
Subjective Remarks Follow-up chest pain and anemia status post AV fistula 04/10/2016. Patient evaluated today resting comfortably reports chest pain has resolved offers no specific complaints once to go home. Objective Vitals Vital Signs Date Time Temp Pulse Resp B/P Pulse Ox O2 Delivery O2 Flow Rate FiO2 04/11/16 12:04 97.8 75 20 97/52 97 04/11/16 09:41 18 04/11/16 08:00 90 04/11/16 08:00 99.4 91 18 137/64 04/11/16 07:43 98 Nasal Cannula 3.00 04/11/16 07:00 83 04/11/16 06:00 83 04/11/16 05:00 80 04/11/16 04:00 84 04/11/16 04:00 97.8 91 18 136/63 99 04/11/16 03:00 82 04/11/16 02:00 84 04/11/16 01:00 82 04/11/16 00:00 77 04/11/16 00:00 97.8 80 18 95/49 100 04/10/16 23:45 97.8 76 18 96/49 100 04/10/16 23:00 76 04/10/16 22:00 72 04/10/16 21:19 98 Nasal Cannula 3.00 04/10/16 21:00 80 04/10/16 20:00 89 04/10/16 20:00 99.6 89 18 90/52 100 04/10/16 19:45 99.3 79 18 139/60 100 04/10/16 19:30 99.3 89 18 90/52 100 04/10/16 19:00 92 04/10/16 18:29 98.8 98 22 145/73 98 04/10/16 18:06 99.2 98 18 149/62 96 Nasal Cannula 2 04/10/16 17:30 98 18 149/62 96 Nasal Cannula 2 04/10/16 16:30 99 18 140/60 96 Nasal Cannula 2 04/10/16 15:30 92 16 155/75 97 Nasal Cannula 2 04/10/16 14:30 100 16 149/72 98 Nasal Cannula 2 I/O 04/10/16 04/10/16 04/10/16 04/11/16 04/11/16 04/11/16 07:00 15:00 23:00 07:00 15:00 23:00 Intake Total 450 ml 1280 ml Output Total 25 ml 500 ml Balance 425 ml 780 ml Intake Oral 480 ml IV Total 89 ml Packed Cells 711 ml Other 450 ml Output Urine Total 500 ml Estimated Blood Loss 25 ml # Bowel Movements 0 Result Diagram: 04/11/1644604/11/16446 Objective Remarks GENERAL: This is a well-nourished, well-developed patient, in no apparent distress. SKIN: No rashes, ecchymoses or lesions. Cool and dry. Right upper extremity post surgical dressing dry and intact HEAD: Atraumatic. Normocephalic. No temporal or scalp tenderness. EYES: Extraocular motions intact. No scleral icterus. No injection or drainage. ENT: Nose without bleeding, purulent drainage or septal hematoma. Throat without erythema, tonsillar hypertrophy or exudate. Uvula midline. Airway patent. NECK: Trachea midline. No JVD or lymphadenopathy. Supple, nontender, no meningeal signs. CARDIOVASCULAR: Regular rate and rhythm without murmurs, gallops, or rubs. RESPIRATORY: Clear to auscultation. Breath sounds equal bilaterally. No wheezes , rales, or rhonchi. GASTROINTESTINAL: Abdomen soft, non-tender, nondistended. No guarding. MUSCULOSKELETAL: Extremities without clubbing, cyanosis, or edema. No joint tenderness, effusion, or edema noted. No calf tenderness. Negative Homans sign bilaterally. NEUROLOGICAL: Awake and alert. Motor and sensory grossly within normal limits. 4 out of 5 muscle strength in all muscle groups. Normal speech. A/P Assessment and Plan This 66 year old male patient with past medical history which includes a end- stage renal disease secondary to IgA nephropathy, hypertension, COPD, atrial fibrillation, CAD status post coronary angioplasty, hyperlipidemia, esophageal ulceration and history of MRSA. Patient underwent a right brachial to brachial AV fistula today and in the post anesthesia recovery unit had to have chest pain. EKG reviewed by myself as well as Dr. Lai and revealed normal sinus rhythm at 97 beats per minute. Anterior ischemia with 1-[address]- segment depression at V4, V5. Chest pain- resolved Carvedilol 3.125 every 12 hours Serial troponin reviewed 0.05, 0.06, 0.07 Lipid profile- LDL 32 Cardiology also following, appreciate input End-stage renal disease secondary to IgA nephropathy-status post right brachial to brachial AV fistula graft on 04/10/2016 Hypertension continue patient's Norvasc and hydralazine Hyperlipidemia continue patient's home statin COPD continue duo nebs 4 times a day and as needed Postop anemia- improved Status post 2 units packed red blood cells hemoglobin now 10.2 SCDs for DVT prophylaxis patient is also on heparin drip Medically stable for discharge per hospitalist- recommend follow-up with PCP and cardiology Discussed plan of care with patient, RN, and Melina Khan Apr 11, 2016 13:36
[2016-04-11] MEDS: SODIUM CHLOR 0.9% 1000 ML INJ 1,000 ML IV SCH (17:34)
--- NOTE | 2016-04-11 18:23 | PD.CARD.PN ---
Subjective Subjective Remarks alert in nad, denies chest pain Objective Vital Signs / I&O Vital Signs Date Time Temp Pulse Resp B/P Pulse Ox O2 Delivery O2 Flow Rate FiO2 04/11/16 13:00 80 04/11/16 12:04 97.8 75 20 97/52 97 04/11/16 12:00 75 04/11/16 11:00 73 04/11/16 10:00 75 04/11/16 09:41 18 04/11/16 09:00 91 04/11/16 08:00 90 04/11/16 08:00 99.4 91 18 137/64 04/11/16 07:43 98 Nasal Cannula 3.00 04/11/16 07:00 83 04/11/16 06:00 83 04/11/16 05:00 80 04/11/16 04:00 84 04/11/16 04:00 97.8 91 18 136/63 99 04/11/16 03:00 82 04/11/16 02:00 84 04/11/16 01:00 82 04/11/16 00:00 77 04/11/16 00:00 97.8 80 18 95/49 100 04/10/16 23:45 97.8 76 18 96/49 100 04/10/16 23:00 76 04/10/16 22:00 72 04/10/16 21:19 98 Nasal Cannula 3.00 04/10/16 21:00 80 04/10/16 20:00 89 04/10/16 20:00 99.6 89 18 90/52 100 04/10/16 19:45 99.3 79 18 139/60 100 04/10/16 19:30 99.3 89 18 90/52 100 04/10/16 19:00 92 04/10/16 18:29 98.8 98 22 145/73 98 I/O 04/10/16 04/10/16 04/10/16 04/11/16 04/11/16 04/11/16 07:00 15:00 23:00 07:00 15:00 23:00 Intake Total 450 ml 1280 ml Output Total 25 ml 500 ml 1000 ml Balance 425 ml 780 ml -1000 ml Intake Oral 480 ml IV Total 89 ml Packed Cells 711 ml Other 450 ml Output Urine Total 500 ml Hemodialysis 1000 ml Estimated Blood Loss 25 ml # Bowel Movements 0 Laboratory GENERAL: SKIN: Warm and dry. HEAD: Normocephalic. EYES: No scleral icterus. No injection or drainage. NECK: Supple, trachea midline. No JVD or lymphadenopathy. CARDIOVASCULAR: Regular rate and rhythm without murmurs, gallops, or rubs. RESPIRATORY: Breath sounds equal bilaterally. No accessory muscle use. GASTROINTESTINAL: Abdomen soft, non-tender, nondistended. MUSCULOSKELETAL: No cyanosis, or edema. BACK: Nontender without obvious deformity. No CVA tenderness. Laboratory Tests Test 04/11/16 04:47 White Blood Count 9.6 TH/MM3 Red Blood Count 3.67 MIL/MM3 Hemoglobin 10.2 GM/DL Hematocrit 31.1 % Mean Corpuscular Volume 84.7 FL Mean Corpuscular Hemoglobin 27.7 PG Mean Corpuscular Hemoglobin 32.8 % Concent Red Cell Distribution Width 17.9 % Platelet Count 519 TH/MM3 Mean Platelet Volume 7.0 FL Activated Partial 24.8 SEC Thromboplast Time Sodium Level 134 MEQ/L Potassium Level 4.2 MEQ/L Chloride Level 100 MEQ/L Carbon Dioxide Level 22.8 MEQ/L Anion Gap 11 MEQ/L Blood Urea Nitrogen 34 MG/DL Creatinine 3.62 MG/DL Estimat Glomerular Filtration 17 ML/MIN Rate Random Glucose 85 MG/DL Calcium Level 10.4 MG/DL Troponin I 0.07 NG/ML Triglycerides Level 97 MG/DL Cholesterol Level 82 MG/DL LDL Cholesterol 32 MG/DL HDL Cholesterol 30.3 MG/DL Cholesterol/HDL Ratio 2.70 RATIO Assessment and Plan Problem List: (1) COPD with acute exacerbation (2) CAD (coronary artery disease) (3) Acute blood loss anemia (4) Symptomatic anemia (5) Atrial fibrillation with rapid ventricular response (6) Anemia (7) ESRD on hemodialysis (8) Angina at rest (9) Unstable angina Assessment and Plan 1.) CAD - usa resolved after blood transfusion, ok to dc from cv standpoint, f/ u with me in office next week, d/w patient, nurse and charge nurse. Gary Ramos MD Apr 11, 2016 18:23
--- NOTE | 2016-04-22 07:21 | MP ---
cc: EDENILSON MCNAMARA ATTENDING PHYSICIAN Dr. Edenilson Mcnamara DATE OF OPERATION 04/10/2016 THEATRE DIRECTOR Reji Loaiza. PREOPERATIVE DIAGNOSIS End-stage renal disease and need for hemodialysis. POSTOPERATIVE DIAGNOSIS End-stage renal disease and need for hemodialysis. PROCEDURE Right upper extremity A-V fistula creation, brachial artery to brachial vein. IV FLUIDS 450 cc crystalloid ESTIMATED BLOOD LOSS 25 cc URINE OUTPUT Not calculated. COMPLICATIONS None. DISPOSITION To PACU. PROCEDURE The patient's right upper extremity was prepped and draped in a sterile fashion. After being under general endotracheal anesthesia, we inject approximately 10 cc of 0.25% Marcaine with epinephrine just above the antecubital fossa in the medial aspect of the right upper extremity. I used a scalpel and electrocautery and dissect down through the skin and subcutaneous tissue extending from the antecubital fossa towards the mid- biceps area. It should be noted that the patient did receive preoperative IV antibiotics with a history of multiple catheters and a history of MRSA in the way of 1 gram of IV vancomycin. I identified the basilic vein just above the antecubital fossa; it appeared to be smaller than the brachial vein in similar location. As I moved towards the axilla more proximally, it should be noted that where the brachial vein merged the large tributary into the basilic vein, the basilic vein from the lower to mid-biceps appeared to be larger. It should be noted that the patient appeared to have a high bifurcation with the radial artery coming off of the brachial artery high in the arm. The larger of the two vessels appeared to be the deep brachial artery. I was able to identify this and dissect it free of any periadventitial tissue. I did mobilize the brachial vein. I tied off side branches with small clips and 3-0 silk ties as needed as well as 4-0 silks. I mobilized one of the brachial veins from the brachial artery that was more accessible where it merged with the basilic vein. I tied it off with 2-0 silks so that the more distal aspect of the brachial vein and the proximal basilic vein were my ultimate conduit. At this point I did heparinize the patient with 3000 units of heparin. I divided the brachial vein down to the antecubital fossa and then basically I mobilized it from underneath the basilic nerve with the more proximal basilic vein. Now that the vein was over top of the nerve, I performed an arteriotomy while getting control of the brachial artery just above the antecubital fossa with two small profunda clamps. I performed arteriotomy with an 11-blade and Jamison scissors. I then performed an end-to-side anastomosis with 5-0 Prolene in a continuous fashion, showed that there was a nice pulsation in the vein after my anastomosis but no thrill. I then passed a #2 coronary dilator proximally and distally and was able to feel a more palpable thrill afterwards. I used Surgicel to help out with hemostasis. I closed the deep fascia over the brachial artery with interrupted 2-0 Vicryl sutures, then I used 3-0 Vicryl interrupted sutures to close the deep dermis over top of the vein segment and then used 4-0 Monocryl for the skin with Dermabond. The patient tolerated the procedure well and was taken to the PACU at the end of the case. I did place a Kerlix dressing around the arm and then placed the patient in an arm sling. The patient tolerated the procedure well. DO MONA Issa/DEIDRA /4:14 PM /7:03 AM
[2016-06-24] MEDS ORDERED: FURO1TAB62 PO (07:01)
[2016-06-24] MEDS ORDERED: CYPR4TAB PO (07:01)
[2016-06-24] MEDS ORDERED: CEFA1SOL IV (07:01)
[2016-06-24] MEDS ORDERED: MIRA33504 PO (07:01)
[2016-06-24] MEDS ORDERED: NEPHTAB3 PO (07:01)
[2016-06-24] MEDS ORDERED: TAMS5CAP PO (07:01)
[2016-06-24] MEDS ORDERED: NORC5TAB PO (07:01)
[2016-06-24] MEDS ORDERED: CARV3.125 PO (07:01)
[2016-06-24] MEDS ORDERED: COLA100C3 PO (07:01)
== END 2016-04-11 19:00 | disposition home or self-care (01) ==
LOC: HSDC 05:30 → HSDI 17:45 → HCIS 18:20
PROVIDERS: ADMIT Surgery; ATTEND Surgery
DX: N18.6 End stage renal disease (principal); I12.0 Hypertensive chronic kidney disease with stage 5 chronic kidney disease or end stage renal disease; J44.1 Chronic obstructive pulmonary disease with (acute) exacerbation; D62 Acute posthemorrhagic anemia; I25.110 Atherosclerotic heart disease of native coronary artery with unstable angina pectoris; I48.91 Unspecified atrial fibrillation; I42.9 Cardiomyopathy, unspecified; E78.5 Hyperlipidemia, unspecified; F17.200 Nicotine dependence, unspecified, uncomplicated; M19.90 Unspecified osteoarthritis, unspecified site; Z86.14 Personal history of Methicillin resistant Staphylococcus aureus infection; Z99.2 Dependence on renal dialysis; Z87.11 Personal history of peptic ulcer disease; Z98.61 Coronary angioplasty status
CPT/HCPCS: 01844; 36430; 36819; 76937; 80048; 80061; 82550; 84484; 85014; 85018; 85027; 85610; 85730; 86850; 86900; 86901; 86920; 93005; 94640; 94664; 96374; 96375; G0257; G0378; J1580; J1644; J2250; J2270; J2370; J2405; J2720; J3010; J3370; J7030; J7050; J7120; P9016; Q4081; 90935

== ENCOUNTER → 2016-06-24 | Day surgery (SDC) | payer MEDICARE ==
[~2016-06-24] VITALS: Ht 165.1 cm; Wt 56.5 kg
[~2016-06-24] MED LIST changes: +*diphenhydrAMINE HCL 50 MG/ML VIAL PERIprocedural Use ONLY ONE; +*morphine SULFATE 8 MG/ML PERIprocedure ONLY ONE; +ACETAMINOPHEN/HYDROcodone 325 MG/5 MG TAB ONE; +BUPIVACAINE/EPINEPHRINE 0.25% 50 ML VIAL ONE; -CALC.25 PO; +CARV3.125 PO; +CEFA1SOL IV; +COLA100C3 PO; +FURO1TAB62 PO; +GELFOAM SIZE 100 ONE; +HEPARIN SODIUM - SQ 10,000 UNITS/ML VIAL ONE; +INSULIN HUMAN REGULAR 1,000 UNITS/10 ML VIAL SQ PRN; +LACTATED RINGER'S 1000 ML IV SCH; +MIRA33504 PO; +NEPHTAB3 PO; +NORC5TAB PO; +ONDANSETRON HCL 4 MG/2 ML VIAL IV PUSH ONE; +PROPOFOL 200 MG/20 ML AMP IV ONE; +PROTAMINE SULFATE 50 MG/5 ML VIAL ONE; +SODIUM CHLORID 0.9% 500 ML IV SCH; +TAMS5CAP PO; -TEMA15CA PO; +THROMBIN (TOPICAL) 5,000 UNIT VIAL ONE; +VANCOMYCIN HCL 1000 MG VIAL ONE
[2016-06-24 06:49] VITALS: BP 170/71; PULSE 82; RESP 18; TEMP 97.1; O2SAT 100
[2016-06-24 07:13] LABS: PROTHROMBIN TIME - PATIENT 11.2 SEC (9.8-11.6)
[2016-06-24] MEDS: METOPROLOL TARTRATE 25 MG TAB PO PRN (07:20)
[2016-06-24 11:30] VITALS: BP 115/53; PULSE 67; RESP 18; TEMP 97.1; O2SAT 96
--- NOTE | 2016-06-26 06:43 | MP ---
cc: EDENILSON BACA DATE OF SURGERY 06/24/2016 PREOPERATIVE DIAGNOSIS End-stage renal disease. POSTOPERATIVE DIAGNOSIS End-stage renal disease. PROCEDURE Right upper extremity brachial vein transposition. SURGEON Dr. Edenilson Baca [employer] Juli [place]. IV FLUIDS 400 cc ESTIMATED BLOOD LOSS Minimal. URINE OUTPUT Not calculated. COMPLICATIONS None. ANESTHESIA General with 0.25% Marcaine with epinephrine, 10 cc. PROCEDURE The patient's right upper extremity was prepped and draped in sterile fashion after being under anesthesia. I made a linear incision across the medial aspect of the right upper extremity from the axilla towards the antecubital fossa with a scalpel and electrocautery. I dissected down with Metzenbaum scissors. I tied off side branches with medium and small clips as well as 3-0 silk ties as needed. I marked the vein to make sure it was not twisted before closure vein. That there was not enough redundancy to significantly make a tunnel for a tunnel transposition so we just transposed the vein up, superficialized the vein. I closed the deep fascia with interrupted 2-0 Vicryl absorbable sutures, then I used 3-0 Vicryl absorbable sutures, interrupteds for the deep dermal tissue and a 4-0 Monocryl for the skin. The patient had Dermabond placed over the incision. The incision was wrapped with 4x4s and a Kerlix dressing. It should be noted that we did give the patient perioperative IV vancomycin as he has a history of recurrent central venous catheters and a history of MRSA. DO MONA Issa/DEIDRA /9:55 AM /6:32 AM
== END | disposition home or self-care (01) ==
LOC: HSDC 05:38
PROVIDERS: ATTEND Surgery
DX: N18.6 End stage renal disease (principal); I12.0 Hypertensive chronic kidney disease with stage 5 chronic kidney disease or end stage renal disease; J44.9 Chronic obstructive pulmonary disease, unspecified
CPT/HCPCS: 01844; 36832; 76937; 84132; 85610; 86850; 86900; 86901; J1200; J1644; J2270; J2405; J3010; J3370; J7120; J2720

== ENCOUNTER → 2016-10-09 | Outpatient (CLI) | payer MEDICARE ==
[~2016-10-09] MED LIST changes: -*diphenhydrAMINE HCL 50 MG/ML VIAL PERIprocedural Use ONLY ONE; -*morphine SULFATE 8 MG/ML PERIprocedure ONLY ONE; -ACETAMINOPHEN/HYDROcodone 325 MG/5 MG TAB ONE; -BUPIVACAINE/EPINEPHRINE 0.25% 50 ML VIAL ONE; -FLUT50SP EACH NARE; -GELFOAM SIZE 100 ONE; -HEPARIN SODIUM - SQ 10,000 UNITS/ML VIAL ONE; -HYDR25TA35 PO; -INSULIN HUMAN REGULAR 1,000 UNITS/10 ML VIAL SQ PRN; -IPRASOL NEB; -ISOS30TA3 PO; -LACTATED RINGER'S 1000 ML IV SCH; -ONDANSETRON HCL 4 MG/2 ML VIAL IV PUSH ONE; -PROPOFOL 200 MG/20 ML AMP IV ONE; -PROTAMINE SULFATE 50 MG/5 ML VIAL ONE; -SODIUM CHLORID 0.9% 500 ML IV SCH; -THROMBIN (TOPICAL) 5,000 UNIT VIAL ONE; -VANCOMYCIN HCL 1000 MG VIAL ONE
--- NOTE | 2016-10-09 14:11 | RADRPT ---
EXAM DATE/TIME: 10/09/2016 13:23 [facility] COMPARISON: CT ABDOMEN & PELVIS W/O CONTRAST, January 17, 2016, 20:42. INDICATIONS : Severe left hip pain with lateral swelling. History of left hip injections. MEDICAL HISTORY : Dialysis SURGICAL HISTORY : Lt foot surgery, lt hip injections. ENCOUNTER: Subsequent ACUITY: 3 months PAIN SCORE: 6/10 LOCATION: Left hip TECHNIQUE: Multiplanar, multisequence MRI examination was performed without contrast. FINDINGS: There is extensive and far advanced osteoarthritis in both hips. There is slight acetabular prot rusion on the left. The femoral heads bilaterally are basically destroyed and resorbed with complete loss of the articular cartilage and possibility of superimposed AVN should also be entertained. There is loculated fluid extending from the left hip joint into the anterior thigh which measures 9.1 cm i n craniocaudal dimension and 5.8 cm in AP diameter probably loculated synovial fluid extruding into t he subcutaneous muscular structures of the left anterior thigh. There is edema involving the marrow o n both sides of the joints of the hips bilaterally. CONCLUSION: 1. Large loculated fluid the patient's left anterior thigh appears to be connecting to the left hip j oint probably extruded synovial fluid and joint effusion. 2. 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 Mark Akhtar MD on October 09, 2016 at 14:03 Board Certified Radiologist. This report was verified electronically.
== END ==
LOC: HRAD 12:31
PROVIDERS: ATTEND Internal Medicine Infectious Disease
DX: M25.552 Pain in left hip (principal)
CPT/HCPCS: 73721